=== PATIENT | female | born 1955 | race Caucasian/White ===

== ENCOUNTER → 2021-02-16 | Outpatient (CLI) | payer MEDICARE ==
[~2021-02-16] MED LIST: BYSTOLIC5 MG PO; CALCIUM CITRAT250 M1 PO; DAILY VITAMIN1 EAC3 PO; GLUCOSAMINE PO; LAMICTAL 25MG T25 MG PO; MAGNESIUM100 M1 PO; NIACIN; POTASSIUM CHLO10 ME5 PO; SEROQUEL300 M1 PO; ZESTRIL10 M1 PO; ZYRTEC10 M3 PO
[2021-02-16 09:15] LABS: EOS # 0.4 (0.04-0.40); EOS % 6.6 % (1.0-5.0); HEMATOCRIT 41.8 % (37.0-47.0); HEMOGLOBIN 13.7 g/dL (12.5-16.0); MEAN CELL VOLUME 93 fl (78-100); MEAN CORPUSCULAR HEMOGLOBIN 30 pg (27-31); MEAN CORPUSCULAR HGB CONC 33 g/dL (33-37); MEAN PLATELET VOLUME 11.1 fl (7.4-10.4); MONO # 0.4 (0.20-0.80); NEU # 2.7 (1.40-6.50); PLATELET COUNT 222 K/mm3 (130-400); RED BLOOD COUNT 4.51 M/mm3 (4.10-5.30); RED CELL DISTRIBUTION WIDTH 13.4 % (11.5-14.5); WHITE BLOOD COUNT 5.4 K/mm3 (4.8-10.8)
[2021-02-16 09:26] LABS: ALBUMIN 4.3 g/dL (3.4-4.8); POTASSIUM 4.9 mmol/L (3.5-5.1)
[2021-02-16 09:27] LABS: CALCIUM 9.6 mg/dL (8.3-10.5)
[2021-02-16 09:29] LABS: TOTAL PROTEIN 6.9 g/dL (6.2-8.1)
[2021-02-16 09:30] LABS: TOTAL BILIRUBIN 0.4 mg/dL (0.2-1.2)
[2021-02-16 10:20] LABS: ERYTHROCYTE SEDIMENTATION RATE 7 mm/hr (0-30)
== END ==
LOC: LAB 08:43
PROVIDERS: Internal Medicine
DX: M17.11 Unilateral primary osteoarthritis, right knee (principal)

== ENCOUNTER → 2021-08-08 | Outpatient (CLI) | payer MEDICARE | LOC: RAD 10:00 | DX: R06.00 Dyspnea, unspecified (principal) ==

== ENCOUNTER 2021-08-19 18:47 | Emergency (ER) | payer MEDICARE ==
[~2021-08-19] VITALS: Ht 170.2 cm; Wt 110.4 kg
[2021-08-19] MEDS ORDERED: ZESTRIL10 M1 PO (19:23)
[2021-08-19] MEDS ORDERED: BYSTOLIC5 MG PO (19:28)
[2021-08-19] MEDS ORDERED: LAMICTAL 25MG T25 MG PO (19:28)
[2021-08-19] MEDS ORDERED: ZYRTEC10 M3 PO (19:29)
[2021-08-19] MEDS ORDERED: SEROQUEL300 M1 PO (19:30)
[2021-08-19] MEDS ORDERED: MAGNESIUM100 M1 PO (19:32)
[2021-08-19] MEDS ORDERED: POTASSIUM CHLO10 ME5 PO (19:32)
[2021-08-19] MEDS ORDERED: CALCIUM CITRAT250 M1 PO (19:35)
[2021-08-19] MEDS ORDERED: GLUCOSAMINE PO (19:36)
[2021-08-19] MEDS ORDERED: DAILY VITAMIN1 EAC3 PO (19:37)
[2021-08-19] MEDS ORDERED: NIACIN (19:37)
[2021-08-19 20:01] LABS: BASO # 0.04 (0.02-0.10); EOS # 0.47 (0.04-0.40); EOS % 5.7 % (1.0-5.0); HEMATOCRIT 35.9 % (37.0-47.0); HEMOGLOBIN 12.5 g/dL (12.5-16.0); LYMPH# 2.99 (1.50-4.00); MEAN CELL VOLUME 92 fl (78-100); MEAN CORPUSCULAR HEMOGLOBIN 32 pg (27-31); MEAN CORPUSCULAR HGB CONC 35 g/dL (33-37); MEAN PLATELET VOLUME 11.3 fl (7.4-10.4); MONO # 0.54 (0.20-0.80); NEU # 4.13 (1.40-6.50); PLATELET COUNT 205 K/mm3 (130-400); RED BLOOD COUNT 3.92 M/mm3 (4.10-5.30); RED CELL DISTRIBUTION WIDTH 13.2 % (11.5-14.5); WHITE BLOOD COUNT 8.2 K/mm3 (4.8-10.8)
[2021-08-19 20:07] LABS: ALBUMIN 3.8 g/dL (3.4-4.8)
[2021-08-19 20:08] LABS: POTASSIUM 4.1 mmol/L (3.5-5.1)
[2021-08-19 20:09] LABS: CALCIUM 9.2 mg/dL (8.3-10.5)
[2021-08-19 20:10] LABS: TOTAL PROTEIN 6.2 g/dL (6.2-8.1)
[2021-08-19 20:12] LABS: TOTAL BILIRUBIN 0.2 mg/dL (0.2-1.2)
[2021-08-19 21:44] VITALS: BP 127/74
== END 2021-08-19 21:44 | disposition home or self-care (01) ==
LOC: ED 18:47
PROVIDERS: Family Medicine
DX: F41.9 Anxiety disorder, unspecified (principal); I10 Essential (primary) hypertension; F31.9 Bipolar disorder, unspecified; G47.30 Sleep apnea, unspecified; Z99.89 Dependence on other enabling machines and devices; Z79.899 Other long term (current) drug therapy

== ENCOUNTER 2021-11-29 11:07 | Emergency (ER) | payer MEDICARE ==
[2021-11-29 11:34] LABS: BASO # 0.02 K/mm3 (0.02-0.10); EOS # 0.03 K/mm3 (0.04-0.40); EOS % 0.2 % (1.0-5.0); HEMATOCRIT 37.1 % (37.0-47.0); LYMPH# 1.31 K/mm3 (1.50-4.00); MEAN CELL VOLUME 94 fl (78-100); MEAN CORPUSCULAR HEMOGLOBIN 31 pg (27-31); MEAN CORPUSCULAR HGB CONC 32 g/dL (33-37); MEAN PLATELET VOLUME 11.2 fl (7.4-10.4); MONO # 0.77 K/mm3 (0.20-0.80); NEU # 11.55 K/mm3 (1.40-6.50); PLATELET COUNT 172 K/mm3 (130-400); RED BLOOD COUNT 3.93 M/mm3 (4.10-5.30); RED CELL DISTRIBUTION WIDTH 13.4 % (11.5-14.5); WHITE BLOOD COUNT 13.7 K/mm3 (4.8-10.8)
[2021-11-29 11:42] LABS: ALBUMIN 4.1 g/dL (3.4-4.8); SODIUM 136 mmol/L (136-145)
[2021-11-29 11:43] LABS: CALCIUM 9.9 mg/dL (8.3-10.5)
[2021-11-29 11:44] LABS: GLUCOSE 127 mg/dL (65-105)
[2021-11-29 11:46] LABS: CARBON DIOXIDE 22 mmol/L (23-31); TOTAL BILIRUBIN 0.6 mg/dL (0.2-1.2)
[2021-11-29 11:50] LABS: AST-SGOT 30 U/L (5-34)
[2021-11-29 11:51] LABS: ALT/SGPT 37 U/L (0-55)
[2021-11-29] MEDS ORDERED: KLONOPIN 0.5MG0.5 MG PO (11:57)
[2021-11-29] MEDS ORDERED: CALCIUM 600 MG-1 TAB PO (11:57)
[2021-11-29 11:58] LABS: TROPONIN-I < 0.030 ng/mL (<0.030)
[2021-11-29 13:37] LABS: PH-URINE 5.5 (5.0 - 8.0); URINE APPEARANCE CLEAR; URINE BILIRUBIN NEGATIVE (NEGATIVE); URINE BLOOD NEGATIVE (NEGATIVE); URINE COLOR YELLOW; URINE GLUCOSE NEGATIVE (NEGATIVE); URINE KETONE NEGATIVE (NEGATIVE); URINE LEUKOCYTE ESTERASE NEGATIVE (NEGATIVE); URINE NITRATE NEGATIVE (NEGATIVE); URINE PROTEIN(semi-quant) 1+ (NEGATIVE); URINE UROBILINOGEN NORMAL (NORMAL)
[2021-11-29] MEDS ORDERED: MORGIDOX 2X100100 MG PO (15:36)
[2021-11-29] MEDS ORDERED: ALBUTEROL2.5 MG/3 M IH (15:36)
[2021-11-29] MEDS ORDERED: CLINDAMYCIN 300MG PO (15:36)
[2021-11-29] MEDS ORDERED: PROAIR DIGIHAL90 MCG IH (15:36)
[2021-11-29] MEDS ORDERED: NEB INH (15:38)
[2021-11-29 17:47] VITALS: BP 148/98
== END 2021-11-29 16:15 | disposition home or self-care (01) ==
LOC: ED 11:07
PROVIDERS: Physician Assistant
DX: J18.1 Lobar pneumonia, unspecified organism (principal); D72.829 Elevated white blood cell count, unspecified; I10 Essential (primary) hypertension; F31.9 Bipolar disorder, unspecified; F41.9 Anxiety disorder, unspecified; Z20.822 Contact with and (suspected) exposure to COVID-19; Z79.899 Other long term (current) drug therapy
CPT/HCPCS: J3490; Q9967

== ENCOUNTER → 2022-02-27 | Outpatient (CLI) | payer MEDICARE ==
[~2022-02-27] MED LIST changes: +ALBUTEROL2.5 MG/3 M IH; +CALCIUM 600 MG-1 TAB PO; +CLINDAMYCIN 300MG PO; +KLONOPIN 0.5MG0.5 MG PO; +MORGIDOX 2X100100 MG PO; +NEB INH; +PROAIR DIGIHAL90 MCG IH
[2022-02-27 10:36] LABS: BASO # 0.03 K/mm3 (0.02-0.10); EOS # 0.42 K/mm3 (0.04-0.40); EOS % 6.2 % (1.0-5.0); HEMATOCRIT 39.9 % (37.0-47.0); LYMPH# 2.62 K/mm3 (1.50-4.00); MEAN CELL VOLUME 93 fl (78-100); MEAN CORPUSCULAR HEMOGLOBIN 30 pg (27-31); MEAN CORPUSCULAR HGB CONC 33 g/dL (33-37); MEAN PLATELET VOLUME 12.2 fl (7.4-10.4); MONO # 0.44 K/mm3 (0.20-0.80); PLATELET COUNT 201 K/mm3 (130-400); RED BLOOD COUNT 4.27 M/mm3 (4.10-5.30); WHITE BLOOD COUNT 6.7 K/mm3 (4.8-10.8)
[2022-02-27 10:46] LABS: POTASSIUM 4.1 mmol/L (3.5-5.1)
[2022-02-27 10:47] LABS: CALCIUM 9.5 mg/dL (8.3-10.5)
[2022-02-27 10:49] LABS: TOTAL PROTEIN 6.5 g/dL (6.2-8.1)
[2022-02-27 10:50] LABS: TOTAL BILIRUBIN 0.3 mg/dL (0.2-1.2)
[2022-02-27 12:29] LABS: ERYTHROCYTE SEDIMENTATION RATE 13 mm/hr (0-30)
== END ==
LOC: LAB 08:15
PROVIDERS: Internal Medicine
DX: Z12.11 Encounter for screening for malignant neoplasm of colon (principal); K90.9 Intestinal malabsorption, unspecified; E78.2 Mixed hyperlipidemia; I10 Essential (primary) hypertension

== ENCOUNTER → 2022-04-02 | Outpatient (CLI) | payer MEDICARE ==
[2022-04-02 13:19] LABS: BASO # 0.04 K/mm3 (0.02-0.10); EOS # 0.07 K/mm3 (0.04-0.40); EOS % 0.9 % (1.0-5.0); HEMATOCRIT 39.6 % (37.0-47.0); HEMOGLOBIN 12.9 g/dL (12.5-16.0); LYMPH# 1.95 K/mm3 (1.50-4.00); MEAN CELL VOLUME 93 fl (78-100); MEAN CORPUSCULAR HEMOGLOBIN 30 pg (27-31); MEAN CORPUSCULAR HGB CONC 33 g/dL (33-37); MEAN PLATELET VOLUME 11.1 fl (7.4-10.4); MONO # 0.52 K/mm3 (0.20-0.80); NEU # 5.11 K/mm3 (1.40-6.50); PLATELET COUNT 186 K/mm3 (130-400); RED BLOOD COUNT 4.26 M/mm3 (4.10-5.30); RED CELL DISTRIBUTION WIDTH 13.5 % (11.5-14.5); WHITE BLOOD COUNT 7.7 K/mm3 (4.8-10.8)
[2022-04-02 13:25] LABS: ALBUMIN 4.1 g/dL (3.4-4.8); POTASSIUM 4.6 mmol/L (3.5-5.1)
[2022-04-02 13:26] LABS: CALCIUM 9.3 mg/dL (8.3-10.5)
[2022-04-02 13:27] LABS: TOTAL PROTEIN 6.5 g/dL (6.2-8.1)
[2022-04-02 13:49] LABS: TOTAL BILIRUBIN 0.4 mg/dL (0.2-1.2)
== END ==
LOC: LAB 13:07
PROVIDERS: Nurse Practitioner
DX: R10.31 Right lower quadrant pain (principal)

== ENCOUNTER → 2022-04-17 | Outpatient (CLI) | payer MEDICARE | LOC: RAD 16:25 | DX: R10.31 Right lower quadrant pain (principal) | CPT/HCPCS: Q9967 ==

== ENCOUNTER → 2022-05-25 | Outpatient (CLI) | payer MEDICARE | LOC: RAD 11:34 | DX: M17.0 Bilateral primary osteoarthritis of knee (principal) ==

== ENCOUNTER → 2022-09-18 | Outpatient (CLI) | payer MEDICARE ==
[2022-09-18 12:48] LABS: BASO # 0.05 K/mm3 (0.02-0.10); EOS # 0.24 K/mm3 (0.04-0.40); EOS % 3.2 % (1.0-5.0); HEMATOCRIT 41.2 % (37.0-47.0); HEMOGLOBIN 13.7 g/dL (12.5-16.0); MEAN CELL VOLUME 94 fl (78-100); MEAN CORPUSCULAR HEMOGLOBIN 31 pg (27-31); MEAN CORPUSCULAR HGB CONC 33 g/dL (33-37); MEAN PLATELET VOLUME 11.1 fl (7.4-10.4); MONO # 0.48 K/mm3 (0.20-0.80); NEU # 4.57 K/mm3 (1.40-6.50); PLATELET COUNT 206 K/mm3 (130-400); RED BLOOD COUNT 4.37 M/mm3 (4.10-5.30); RED CELL DISTRIBUTION WIDTH 13.2 % (11.5-14.5); WHITE BLOOD COUNT 7.6 K/mm3 (4.8-10.8)
[2022-09-18 12:57] LABS: ALBUMIN 4.2 g/dL (3.4-4.8)
[2022-09-18 12:58] LABS: POTASSIUM 4.3 mmol/L (3.5-5.1)
[2022-09-18 12:59] LABS: CALCIUM 9.5 mg/dL (8.3-10.5)
[2022-09-18 13:00] LABS: TOTAL PROTEIN 6.9 g/dL (6.2-8.1)
[2022-09-18 13:02] LABS: TOTAL BILIRUBIN 0.3 mg/dL (0.2-1.2)
[2022-09-18 13:06] LABS: MAGNESIUM 1.74 mg/dL (1.60-2.60)
[2022-09-18 13:39] LABS: URINE APPEARANCE CLEAR; URINE BILIRUBIN NEGATIVE (NEGATIVE); URINE BLOOD NEGATIVE (NEGATIVE); URINE COLOR YELLOW; URINE GLUCOSE NEGATIVE (NEGATIVE); URINE KETONE NEGATIVE (NEGATIVE); URINE LEUKOCYTE ESTERASE NEGATIVE (NEGATIVE); URINE NITRATE NEGATIVE (NEGATIVE); URINE PROTEIN(semi-quant) TRACE (NEGATIVE); URINE UROBILINOGEN NORMAL (NORMAL); URINE WBC 0-1 /hpf (0-3)
== END ==
LOC: LAB 12:25 → RAD 12:25
PROVIDERS: Internal Medicine
DX: Z01.812 Encounter for preprocedural laboratory examination (principal)

== ENCOUNTER → 2022-09-19 | Outpatient (CLI) | payer MEDICARE | LOC: AMSURD 14:20 | DX: Z01.818 Encounter for other preprocedural examination (principal) ==

== ENCOUNTER 2022-09-28 08:29 | Emergency (ER) | payer MEDICARE ==
[2022-09-28] MEDS ORDERED: PERCOCET 325 MG1 TA2 (09:17)
[2022-09-28] MEDS ORDERED: CEPHALEXIN500 M1 (09:17)
[2022-09-28] MEDS ORDERED: NAPROXEN500 MG (09:17)
[2022-09-28] MEDS ORDERED: MIRALAX17 GM (09:18)
[2022-09-28] MEDS ORDERED: SENNA-GEN8.6 MG (09:18)
[2022-09-28] MEDS ORDERED: MYLANTA MAXIMUM10 ML (09:18)
[2022-09-28] MEDS ORDERED: NATURE'S BLEND500 M5 (09:19)
[2022-09-28] MEDS ORDERED: POTASSIUM99 M5 (09:19)
[2022-09-28] MEDS ORDERED: FISH OIL1 IU (09:20)
[2022-09-28 11:01] VITALS: BP 142/83
== END 2022-09-28 11:03 | disposition home or self-care (01) ==
LOC: ED 08:29
DX: M25.562 Pain in left knee (principal); Z98.890 Other specified postprocedural states

== ENCOUNTER 2022-10-02 10:51 | Outpatient (RCR) | payer MEDICARE ==
[~2022-10-02 10:51] MED LIST changes: +CEPHALEXIN500 M1; +FISH OIL1 IU; +MIRALAX17 GM; +MYLANTA MAXIMUM10 ML; +NAPROXEN500 MG; +NATURE'S BLEND500 M5; +PERCOCET 325 MG1 TA2; +POTASSIUM99 M5; +SENNA-GEN8.6 MG
[2022-10-17] MEDS ORDERED: ZOFRAN ODT4 MG PO (22:26)
== END 2022-10-31 | disposition still patient (30) ==
LOC: PT
DX: Z96.659 Presence of unspecified artificial knee joint (principal)

== ENCOUNTER → 2022-10-17 | Outpatient (CLI) | payer MEDICARE ==
[~2022-10-17] MED LIST changes: +ZOFRAN ODT4 MG PO
== END ==
LOC: RAD 11:20
DX: M17.11 Unilateral primary osteoarthritis, right knee (principal); M25.562 Pain in left knee; Z96.652 Presence of left artificial knee joint

== ENCOUNTER → 2023-03-23 | Outpatient (CLI) | payer MEDICARE | LOC: RAD 13:05 | DX: M25.562 Pain in left knee (principal); M25.462 Effusion, left knee; Z96.652 Presence of left artificial knee joint ==

== ENCOUNTER 2023-12-19 10:38 | Emergency (ER) | payer MEDICARE ==
[~2023-12-19] VITALS: Wt 106.8 kg
[~2023-12-19 10:38] MED LIST changes: +NORCO 325 MG-51 TA1
[2023-12-19 11:05] VITALS: BP 167/91
[2023-12-19 12:30] LABS: BASO # 0.03 K/mm3 (0.02-0.10); EOS # 0.31 K/mm3 (0.04-0.40); EOS % 6.1 % (1.0-5.0); HEMATOCRIT 39.6 % (37.0-47.0); HEMOGLOBIN 12.8 g/dL (12.5-16.0); LYMPH# 1.33 K/mm3 (1.50-4.00); MEAN CELL VOLUME 93 fl (78-100); MEAN CORPUSCULAR HEMOGLOBIN 30 pg (27-31); MEAN CORPUSCULAR HGB CONC 32 g/dL (33-37); MEAN PLATELET VOLUME 10.9 fl (7.4-10.4); MONO # 0.41 K/mm3 (0.20-0.80); NEU # 2.97 K/mm3 (1.40-6.50); PLATELET COUNT 197 K/mm3 (130-400); RED BLOOD COUNT 4.28 M/mm3 (4.10-5.30); RED CELL DISTRIBUTION WIDTH 13.9 % (11.5-14.5); WHITE BLOOD COUNT 5.1 K/mm3 (4.8-10.8)
[2023-12-19 12:38] LABS: ALBUMIN 4.5 g/dL (3.4-4.8)
[2023-12-19 12:39] LABS: CALCIUM 9.7 mg/dL (8.3-10.5)
[2023-12-19 12:40] LABS: TOTAL PROTEIN 6.8 g/dL (6.2-8.1)
[2023-12-19 12:42] LABS: TOTAL BILIRUBIN 0.3 mg/dL (0.2-1.2)
== END 2023-12-19 14:25 | disposition home or self-care (01) ==
LOC: ED 10:38
PROVIDERS: Physician Assistant
DX: R25.1 Tremor, unspecified (principal); J98.11 Atelectasis; R22.1 Localized swelling, mass and lump, neck; Z79.899 Other long term (current) drug therapy

== ENCOUNTER 2023-12-23 17:17 | Emergency (ER) | payer MEDICARE ==
[~2023-12-23] VITALS: Ht 170.2 cm; Wt 96.6 kg
[2023-12-23 17:43] LABS: BASO # 0.04 K/mm3 (0.02-0.10); EOS # 0.22 K/mm3 (0.04-0.40); EOS % 3.5 % (1.0-5.0); HEMATOCRIT 41.1 % (37.0-47.0); LYMPH# 1.28 K/mm3 (1.50-4.00); MEAN CELL VOLUME 90 fl (78-100); MEAN CORPUSCULAR HEMOGLOBIN 31 pg (27-31); MEAN CORPUSCULAR HGB CONC 34 g/dL (33-37); MEAN PLATELET VOLUME 10.6 fl (7.4-10.4); NEU # 4.31 K/mm3 (1.40-6.50); PLATELET COUNT 207 K/mm3 (130-400); RED BLOOD COUNT 4.55 M/mm3 (4.10-5.30); RED CELL DISTRIBUTION WIDTH 13.4 % (11.5-14.5); WHITE BLOOD COUNT 6.3 K/mm3 (4.8-10.8)
[2023-12-23 17:50] LABS: ALBUMIN 4.7 g/dL (3.4-4.8)
[2023-12-23 17:52] LABS: TOTAL PROTEIN 7.1 g/dL (6.2-8.1)
[2023-12-23 17:53] LABS: GLUCOSE 107 mg/dL (65-105)
[2023-12-23 17:54] LABS: TOTAL BILIRUBIN 0.4 mg/dL (0.2-1.2)
[2023-12-23 17:59] LABS: SODIUM 138 mmol/L (136-145)
[2023-12-23 18:02] LABS: CARBON DIOXIDE 26 mmol/L (23-31)
[2023-12-23 18:07] LABS: AST-SGOT 21 U/L (5-34)
[2023-12-23 18:08] LABS: ALT/SGPT 21 U/L (0-55)
[2023-12-23 18:13] LABS: TROPONIN-I < 0.030 ng/mL (0.00-0.033)
[2023-12-23 19:17] VITALS: BP 169/86
[2023-12-23] MEDS ORDERED: CELECOXIB100 M1 PO (21:55)
[2023-12-23] MEDS ORDERED: QUETIAPINE FUM400 MG PO (21:56)
[2023-12-23] MEDS ORDERED: LAMOTRIGINE200 MG PO (21:56)
[2023-12-23] MEDS ORDERED: REMERON15 MG PO (21:58)
[2023-12-23] MEDS ORDERED: PANTOPRAZOLE SO40 MG PO (21:59)
[2023-12-23] MEDS ORDERED: LASIX40 M1 PO (21:59)
== END 2023-12-23 19:17 | disposition home or self-care (01) ==
LOC: ED 17:17
PROVIDERS: Nurse Practitioner Family
DX: Z71.1 Person with feared health complaint in whom no diagnosis is made (principal)

== ENCOUNTER 2023-12-23 21:36 | Emergency (ER) | payer MEDICARE ==
[~2023-12-23] VITALS: Ht 172.7 cm; Wt 96.6 kg
[2023-12-23] MEDS ORDERED: CELECOXIB100 M1 PO (21:55)
[2023-12-23] MEDS ORDERED: QUETIAPINE FUM400 MG PO (21:56)
[2023-12-23] MEDS ORDERED: LAMOTRIGINE200 MG PO (21:56)
[2023-12-23] MEDS ORDERED: REMERON15 MG PO (21:58)
[2023-12-23] MEDS ORDERED: LASIX40 M1 PO (21:59)
[2023-12-23] MEDS ORDERED: PANTOPRAZOLE SO40 MG PO (21:59)
[2023-12-23 22:11] LABS: BASO # 0.02 K/mm3 (0.02-0.10); EOS % 3.4 % (1.0-5.0); HEMATOCRIT 39.4 % (37.0-47.0); HEMOGLOBIN 13.3 g/dL (12.5-16.0); LYMPH# 1.72 K/mm3 (1.50-4.00); MEAN CELL VOLUME 91 fl (78-100); MEAN CORPUSCULAR HEMOGLOBIN 31 pg (27-31); MEAN CORPUSCULAR HGB CONC 34 g/dL (33-37); MEAN PLATELET VOLUME 10.8 fl (7.4-10.4); MONO # 0.39 K/mm3 (0.20-0.80); NEU # 3.62 K/mm3 (1.40-6.50); PLATELET COUNT 214 K/mm3 (130-400); RED BLOOD COUNT 4.34 M/mm3 (4.10-5.30); RED CELL DISTRIBUTION WIDTH 13.5 % (11.5-14.5)
[2023-12-23 22:17] LABS: ALBUMIN 4.5 g/dL (3.4-4.8)
[2023-12-23 22:18] LABS: SODIUM 142 mmol/L (136-145)
[2023-12-23 22:19] LABS: CALCIUM 9.8 mg/dL (8.3-10.5)
[2023-12-23 22:20] LABS: GLUCOSE 128 mg/dL (65-105); TOTAL PROTEIN 6.7 g/dL (6.2-8.1)
[2023-12-23 22:21] LABS: CARBON DIOXIDE 25 mmol/L (23-31)
[2023-12-23 22:22] LABS: TOTAL BILIRUBIN 0.4 mg/dL (0.2-1.2)
[2023-12-23 22:25] LABS: AST-SGOT 19 U/L (5-34)
[2023-12-23 22:27] LABS: ALT/SGPT 20 U/L (0-55)
[2023-12-23 22:33] LABS: TROPONIN-I < 0.030 ng/mL (0.00-0.033)
[2023-12-23 23:58] VITALS: BP 156/78
== END 2023-12-23 23:58 | disposition home or self-care (01) ==
LOC: ED 21:36
PROVIDERS: Physician Assistant
DX: R42 Dizziness and giddiness (principal); F31.9 Bipolar disorder, unspecified; E87.6 Hypokalemia; R07.9 Chest pain, unspecified
CPT/HCPCS: J7030

== ENCOUNTER 2023-12-25 18:46 | Emergency (ER) | payer MEDICARE ==
[~2023-12-25] VITALS: Ht 172.7 cm; Wt 99.8 kg
[~2023-12-25 18:46] MED LIST changes: +CELECOXIB100 M1 PO; +LAMOTRIGINE200 MG PO; +LASIX40 M1 PO; +PANTOPRAZOLE SO40 MG PO; +QUETIAPINE FUM400 MG PO; +REMERON15 MG PO
[2023-12-25 19:41] LABS: BASO # 0.01 K/mm3 (0.02-0.10); EOS # 0.31 K/mm3 (0.04-0.40); EOS % 4.7 % (1.0-5.0); HEMATOCRIT 38.7 % (37.0-47.0); HEMOGLOBIN 12.7 g/dL (12.5-16.0); LYMPH# 1.84 K/mm3 (1.50-4.00); MEAN CELL VOLUME 93 fl (78-100); MEAN CORPUSCULAR HEMOGLOBIN 30 pg (27-31); MEAN CORPUSCULAR HGB CONC 33 g/dL (33-37); MONO # 0.48 K/mm3 (0.20-0.80); NEU # 3.96 K/mm3 (1.40-6.50); PLATELET COUNT 220 K/mm3 (130-400); RED BLOOD COUNT 4.18 M/mm3 (4.10-5.30); WHITE BLOOD COUNT 6.6 K/mm3 (4.8-10.8)
[2023-12-25 19:49] LABS: ALBUMIN 4.3 g/dL (3.4-4.8); SODIUM 140 mmol/L (136-145)
[2023-12-25 19:51] LABS: CALCIUM 9.1 mg/dL (8.3-10.5)
[2023-12-25 19:52] LABS: GLUCOSE 102 mg/dL (65-105); TOTAL PROTEIN 6.2 g/dL (6.2-8.1)
[2023-12-25 19:53] LABS: CARBON DIOXIDE 24 mmol/L (23-31)
[2023-12-25 19:54] LABS: TOTAL BILIRUBIN 0.3 mg/dL (0.2-1.2)
[2023-12-25 19:55] LABS: ALCOHOL IN-HOUSE < 10 mg/dL (<10)
[2023-12-25 19:57] LABS: AST-SGOT 18 U/L (5-34)
[2023-12-25 19:59] LABS: ALT/SGPT 20 U/L (0-55)
[2023-12-25 20:02] LABS: ACETAMINOPHEN < 1 ug/mL
[2023-12-25 21:57] LABS: URINE APPEARANCE SLIGHTLY CLOUDY (CLEAR); URINE COLOR YELLOW (YELLOW)
[2023-12-25 21:58] LABS: URINE BILIRUBIN NEGATIVE (NEGATIVE); URINE BLOOD NEGATIVE (NEGATIVE); URINE GLUCOSE NEGATIVE (NEGATIVE); URINE KETONE NEGATIVE (NEGATIVE); URINE LEUKOCYTE ESTERASE TRACE (NEGATIVE); URINE NITRATE NEGATIVE (NEGATIVE); URINE PROTEIN(semi-quant) NEGATIVE (NEGATIVE); URINE WBC 0-1 /hpf (0-3)
[2023-12-25 22:30] VITALS: BP 114/61
[2023-12-26 08:25] VITALS: BP 146/72
[2023-12-26 13:45] VITALS: BP 139/86
[2023-12-26] MEDS ORDERED: CYMBALTA60 M1 PO (16:50)
== END 2023-12-26 17:15 ==
LOC: ED 18:46
PROVIDERS: Physician Assistant
DX: R45.851 Suicidal ideations (principal); R45.850 Homicidal ideations

== ENCOUNTER 2024-04-07 11:25 | Emergency (ER) | payer MEDICARE ==
[~2024-04-07] VITALS: Ht 167.6 cm; Wt 104.3 kg
[~2024-04-07 11:25] MED LIST changes: +CYMBALTA60 M1 PO
[2024-04-07] MEDS ORDERED: SEROQUEL 1100 MG/TAB PO ×2 (11:35)
[2024-04-07] MEDS ORDERED: DESYREL DIVIDO150 M1 PO (11:37)
[2024-04-07] MEDS ORDERED: LYMEPAK100 MG PO (11:37)
[2024-04-07] MEDS ORDERED: LITHIUM CA150 MG/CAP (11:38)
[2024-04-07] MEDS ORDERED: methylPREDNISolone Sod Succ 125 MG/2 ML VIAL IV ONE (12:00)
[2024-04-07] MEDS ORDERED: Albuterol/Ipratropium 3 MG-0.5 MG/3 ML Neb Soln IH ONE (12:00)
[2024-04-07 12:17] LABS: BASO # 0.02 K/mm3 (0.02-0.10); EOS # 0.38 K/mm3 (0.04-0.40); EOS % 5.5 % (1.0-5.0); HEMATOCRIT 35.4 % (37.0-47.0); HEMOGLOBIN 11.6 g/dL (12.5-16.0); LYMPH# 2.07 K/mm3 (1.50-4.00); MEAN CELL VOLUME 95 fl (78-100); MEAN CORPUSCULAR HEMOGLOBIN 31 pg (27-31); MEAN CORPUSCULAR HGB CONC 33 g/dL (33-37); MONO # 0.45 K/mm3 (0.20-0.80); NEU # 3.95 K/mm3 (1.40-6.50); PLATELET COUNT 235 K/mm3 (130-400); RED BLOOD COUNT 3.73 M/mm3 (4.10-5.30); RED CELL DISTRIBUTION WIDTH 13.5 % (11.5-14.5); WHITE BLOOD COUNT 6.9 K/mm3 (4.8-10.8)
[2024-04-07 12:30] LABS: SODIUM 141 mmol/L (136-145)
[2024-04-07 12:31] LABS: CALCIUM 9.3 mg/dL (8.3-10.5)
[2024-04-07 12:32] LABS: GLUCOSE 114 mg/dL (65-105); TOTAL PROTEIN 6.3 g/dL (6.2-8.1)
[2024-04-07 12:33] LABS: CARBON DIOXIDE 24 mmol/L (23-31)
[2024-04-07 12:34] LABS: TOTAL BILIRUBIN 0.3 mg/dL (0.2-1.2)
[2024-04-07 12:37] LABS: AST-SGOT 16 U/L (5-34)
[2024-04-07 12:39] LABS: ALT/SGPT 15 U/L (0-55)
[2024-04-07 12:46] LABS: TROPONIN-I < 0.030 ng/mL (0.00-0.033)
[2024-04-07] MEDS ORDERED: BENZONATATE100 M2 PO (13:05)
[2024-04-07 13:15] VITALS: BP 130/73
[2024-04-07 14:42] LABS: URINE APPEARANCE CLEAR (CLEAR); URINE BILIRUBIN NEGATIVE (NEGATIVE); URINE BLOOD NEGATIVE (NEGATIVE); URINE COLOR YELLOW (YELLOW); URINE GLUCOSE NEGATIVE (NEGATIVE); URINE KETONE NEGATIVE (NEGATIVE); URINE LEUKOCYTE ESTERASE NEGATIVE (NEGATIVE); URINE NITRATE NEGATIVE (NEGATIVE); URINE PROTEIN(semi-quant) NEGATIVE (NEGATIVE)
[2024-04-07 14:43] LABS: URINE WBC 0-1 /hpf (0-3)
== END 2024-04-07 13:15 | disposition home or self-care (01) ==
LOC: ED 11:25
PROVIDERS: Physician Assistant
DX: R05.9 Cough, unspecified (principal); T50.1X6A Underdosing of loop [high-ceiling] diuretics, initial encounter; Z88.2 Allergy status to sulfonamides; Z88.0 Allergy status to penicillin
CPT/HCPCS: J2919

== ENCOUNTER → 2024-05-11 | Outpatient (CLI) | payer MEDICARE ==
[~2024-05-11] MED LIST changes: +BENZONATATE100 M2 PO; +DESYREL DIVIDO150 M1 PO; +LITHIUM CA150 MG/CAP; +LYMEPAK100 MG PO; +SEROQUEL 1100 MG/TAB PO
== END ==
LOC: LAB 10:30
DX: F31.9 Bipolar disorder, unspecified (principal); F41.1 Generalized anxiety disorder; F43.10 Post-traumatic stress disorder, unspecified; Z79.899 Other long term (current) drug therapy

== ENCOUNTER 2024-06-09 12:03 | Emergency (ER) | payer MEDICARE ==
[~2024-06-09] VITALS: Ht 167.6 cm; Wt 105.6 kg
[2024-06-09 12:50] LABS: BASO # 0.03 K/mm3 (0.02-0.10); EOS # 0.45 K/mm3 (0.04-0.40); EOS % 6.3 % (1.0-5.0); HEMOGLOBIN 13.3 g/dL (12.5-16.0); LYMPH# 1.93 K/mm3 (1.50-4.00); MEAN CELL VOLUME 92 fl (78-100); MEAN CORPUSCULAR HEMOGLOBIN 31 pg (27-31); MEAN CORPUSCULAR HGB CONC 33 g/dL (33-37); MEAN PLATELET VOLUME 10.8 fl (7.4-10.4); MONO # 0.49 K/mm3 (0.20-0.80); NEU # 4.19 K/mm3 (1.40-6.50); PLATELET COUNT 213 K/mm3 (130-400); RED BLOOD COUNT 4.33 M/mm3 (4.10-5.30); WHITE BLOOD COUNT 7.1 K/mm3 (4.8-10.8)
[2024-06-09 12:53] LABS: ALBUMIN 4.6 g/dL (3.4-4.8)
[2024-06-09 12:54] LABS: SODIUM 140 mmol/L (136-145)
[2024-06-09 12:55] LABS: CALCIUM 9.9 mg/dL (8.3-10.5)
[2024-06-09 12:56] LABS: GLUCOSE 100 mg/dL (65-105); TOTAL PROTEIN 7.3 g/dL (6.2-8.1)
[2024-06-09 12:57] LABS: CARBON DIOXIDE 23 mmol/L (23-31)
[2024-06-09 12:58] LABS: TOTAL BILIRUBIN 0.4 mg/dL (0.2-1.2)
[2024-06-09 13:01] LABS: AST-SGOT 21 U/L (5-34)
[2024-06-09 13:02] LABS: ALT/SGPT 18 U/L (0-55)
[2024-06-09 13:19] LABS: TROPONIN-I < 0.030 ng/mL (0.00-0.033)
[2024-06-09 13:48] VITALS: BP 130/75
[2024-06-09] MEDS ORDERED: NS 1,000 ML IV SCH (14:00)
== END 2024-06-09 14:04 | disposition home or self-care (01) ==
LOC: ED 12:03
PROVIDERS: Physician Assistant
DX: R07.89 Other chest pain (principal)

== ENCOUNTER → 2024-07-01 | Outpatient (CLI) | payer MEDICARE | LOC: RAD 09:47 | DX: R91.8 Other nonspecific abnormal finding of lung field (principal); E04.2 Nontoxic multinodular goiter ==

== ENCOUNTER → 2024-07-28 | Outpatient (CLI) | payer MEDICARE ==
[~2024-07-28] MED LIST changes: +Gadoterate 20 ML VIAL IV ONE
== END ==
LOC: RAD 09:45
DX: H47.11 Papilledema associated with increased intracranial pressure (principal)
CPT/HCPCS: A9575

== ENCOUNTER → 2024-09-11 | Outpatient (CLI) | payer MEDICARE ==
[~2024-09-11] MED LIST changes: -Gadoterate 20 ML VIAL IV ONE
== END ==
LOC: RAD 09:56
DX: E04.2 Nontoxic multinodular goiter (principal)